=== PATIENT | male | born 1955 | race Caucasian/White ===

== ENCOUNTER → 2020-10-14 | Outpatient (CLI) | payer BC ==
[~2020-10-14] MED LIST: AMLODIPINE BESYL5 MG PO; ASPIR 8181 MG PO; DIATRIZOATE MEGL/DIATRIZOA SOD 30 ML BTL PO ONE; DIOVAN HCT 1601 EACH PO; FENOFIBRATE160 MG PO; GLIMEPIRIDE4 MG PO; INSULIN GLARGINE SQ; INVOKANA PO; IOPAMIDOL 370 MG/ML 200 ML INFUS..BTL INJ ONE; METFORMIN HCL850 MG PO; METOPROLOL TART50 MG PO; NIACIN500 MG PO; PANTOPRAZOLE SO40 MG PO; PIOGLITAZONE HC30 MG PO; SODIUM CHLORIDE 0.9% 50ML 50 ML ONE; VYTORIN 10-201 EACH PO
[2020-10-14 14:29] LABS: BLOOD UREA NITROGEN 16 mg/dL (7-26); BUN/CREATININE RATIO 16 (6-25); CREATININE, SERUM 0.97 mg/dL (0.72-1.25); EST GLOMERULAR FILTRATION RATE > 60 ML/MIN (60-)
== END ==
LOC: CT 13:37
PROVIDERS: ATTEND Surgery
DX: R19.04 Left lower quadrant abdominal swelling, mass and lump (principal)
CPT/HCPCS: 36415; 74177; 82565; 84520; Q9967

== ENCOUNTER → 2022-03-21 | Day surgery (SDC) | payer OTHER, MEDICARE ==
[~2022-03-21] MED LIST changes: +ACETAMINOPHEN 1000 MG/100 ML IV ONE; +ATROPINE SULFATE 1 MG/ML VIAL ONE; +DEXAMETHASONE SOD PHOS 10 MG/1 ML VIAL ONE; -DIATRIZOATE MEGL/DIATRIZOA SOD 30 ML BTL PO ONE; +EPHEDRINE SULFATE INJ 50 MG/ML VIAL ONE; +EPINEPHRINE HCL 1:1000 1ML 1 MG/ML AMP ONE; +FARXIGA10 MG; +FENTANYL CITRATE/PF 100MCG/2 ML INJ ONE; +FISH OIL 1,0001 EAC2; +INSULIN REGULAR, HUMAN 100 UNIT/1 ML ONE; -IOPAMIDOL 370 MG/ML 200 ML INFUS..BTL INJ ONE; +LIDOCAINE 1% W/EPINEPHRINE 20 ML VIAL ONE; +LIDOCAINE HCL 2% LOCAL INJ 5 ML SDV VIAL INJ ONE; +MIDAZOLAM HCL 2 MG/2 ML VIAL ONE; +MULTI-VITAMIN1 EACH PO; +MULTIVITA; +NEOSTIGMINE 1 MG/ML 10ML VIAL ONE; +ONDANSETRON HCL INJ 2MG/ML 2ML 2 MG/ML VIAL ONE; +POVIDONE IODINE 0.05% 0.05 % ML PO ONE; +PROPOFOL IV EMULSION 10 MG/ML 20 ML VIAL ONE; +ROCURONIUM BROMIDE 10 MG/ML 5ML VIAL IV ONE; +SEVOFLURANE INHAL SOLN 250 ML PEN BTL ONE; -SODIUM CHLORIDE 0.9% 50ML 50 ML ONE
[2022-03-21 12:53] VITALS: BP 126/73
== END | disposition home or self-care (01) ==
LOC: OR 07:55
PROVIDERS: ATTEND Otolaryngology Otolaryngology/Facial Plastic Surgery
DX: D17.0 Benign lipomatous neoplasm of skin and subcutaneous tissue of head, face and neck (principal); J34.2 Deviated nasal septum; G47.33 Obstructive sleep apnea (adult) (pediatric); I10 Essential (primary) hypertension; E66.01 Morbid (severe) obesity due to excess calories; E11.9 Type 2 diabetes mellitus without complications; Z79.4 Long term (current) use of insulin; Z79.899 Other long term (current) drug therapy
CPT/HCPCS: 21552; 36415; 71046; 82948; 88304; 93005; J0131; J0171; J0461; J2001; J2250; J2405; J2704; J2710; J3010; J1100; J1817